=== PATIENT | female | born 1985 | race Caucasian/White ===

== ENCOUNTER 2021-09-04 07:10 | Emergency (ER) | payer OTHER, MEDICAID, SELFPAY ==
[2021-09-04 07:20] VITALS: BP 122/73; PULSE 76; RESP 20; TEMP 36.7; O2SAT 100; BMI 37.3
--- NOTE | 2021-09-04 07:26 | ED.EXTPRO ---
HPI - Extremity Problem General Chief complaint: Extremity Problem,Nontraumatic Stated complaint: Right arm pain Time Seen by Provider: 09/04/21 07:19 History of Present Illness HPI Narrative: 36-year-old woman with history of diabetes, hyperlipidemia, hypertension and tension headaches presents with 2 and half days of increasing right shoulder arm and hand pain. She notes pain shooting down the posterior portion of her arm but no actual weakness or loss of sensation. She describes no specific trauma that started the problem. She has had no fevers, cough, chills. There is no history of IV drug use or immuno compromised status. She has not had a change to her baseline headaches, no vomiting, diarrhea, abdominal pain. Related Data Previous Rx's Medication Instructions Recorded dexamethasone 4 mg tablet 10 mg PO DAILY #5 tab 09/04/21 hydrocodone 5 mg-acetaminophen 300 1 tab PO Q6H PRN #14 tab 09/04/21 mg tablet Allergies Allergy/AdvReac Type Severity Reaction Status Date / Time oxycodone [From Percocet] Allergy Rash Verified 09/04/21 07:55 Penicillins Allergy Rash Verified 09/04/21 07:55 Review of Systems Review of Systems Narrative: Remainder of complete review of systems is otherwise unremarkable except for that included in the HPI. Patient History Medical History Diabetes Hyperlipidemia Hypertension Tension headache Social History Smoking Status: Current every day smoker Exam Narrative Exam Narrative: General: Alert appropriate in no acute distress Neck: No point tenderness midline cervical area. No skin changes. She did have some tenderness at approximately the C6-7 8 level into the lateral portion of the cervical spine and trapezius muscle that reproduces her pain particularly with stress and minor neck manipulation. Respiratory: Able to speak in full sentences, no obvious respiratory distress Skin: No obvious rashes, warm and dry Extremity: With passive range of motion she has no restrictions at the shoulder elbow or wrist on the right side. Neurovascularly intact. No obvious swelling to the right upper extremity compared to left. Neurologic: Grossly intact no obvious asymmetries or abnormalities, no identified paresthesias to the upper extremity or hand on the right side Psych: appropriate insight and affect, cooperative Initial Vital Signs Initial Vital Signs: Vital Signs Temperature 98.1 F 09/04/21 07:20 Pulse Rate 76 09/04/21 07:20 Respiratory Rate 20 09/04/21 07:20 Blood Pressure 122/73 09/04/21 07:20 Pulse Oximetry 100 09/04/21 07:20 Course Orders Ordered: Discontinued Medications Hydrocodone Bitart/Acetaminophen (Hydrocodone/Acet 10/325 Tablet) 1 tab PO NOW ONE Stop: 09/04/21 07:41 Dexamethasone (Dexamethasone 4 Mg Tablet) 8 mg PO NOW ONE Stop: 09/04/21 07:41 Ketorolac Tromethamine (Ketorolac 30 Mg/Ml Vial) 30 mg IM NOW ONE Stop: 09/04/21 07:41 Vital Signs Vital signs: Vital Signs - 8 hr 09/04/21 07:20 Temperature 98.1 F Pulse Rate 76 Respiratory Rate 20 Blood Pressure 122/73 Pulse Oximetry 100 MDM - Extremity (Nontraumatic) MDM Narrative Medical decision making narrative: 36-year-old woman with diabetes, hypertension, hyperlipidemia with 2 and half days of increasing shoulder and arm pain reproduced by palpation along the lateral aspect of C7 and 8 and consistent with cervical radicular pain. There is no evidence of epidural abscess, shingles, shoulder joint infection or effusion. No biceps, triceps tendinitis and no elbow or wrist abnormalities. He is given a shot of Toradol and Vicodin here in the emergency department. A sling started on Decadron for 3 days instructed that she try ice to her neck rather than her elbow and shoulder and follow-up with her primary care physician next week. She is safe for home discharge Discharge Plan Departure Patient Disposition: Home Clinical Impression: Cervical radiculopathy at C8, C7 radiculopathy Instructions: DI for Neck Pain Activity Restrictions/Additional Instructions: Thank you for coming in today I am sorry you are hurting so much. The source of your pain seems to be the nerves coming out of your neck at the C7 and C8 level that wrap around the top of your shoulder blade, the back of your arm and down to your hand. I am going to suggest 3 days of a steroid, dexamethasone. This will help reduce the inflammation at the base of your neck. Using 400 mg of ibuprofen (2 noln-eww-sylagca pills) and 1 Tylenol every 6 hours can be very helpful in controlling pain. And for severe pain 400 mg of ibuprofen and 1 Vicodin. Use ice to the lower portion of your neck and the sling to help reduce pulling and pain to the area Please schedule a follow-up appointment with your primary care physician for early next week. I hope you feel better Prescriptions: New hydrocodone-acetaminophen 5-300 mg tablet 1 tab PO Q6H PRN (Reason: pain) Qty: 14 RF: 0 dexamethasone 4 mg tablet 10 mg PO DAILY Qty: 5 RF: 0
[2021-09-04] MEDS: KETOROLAC 30 MG/ML VIAL IM (07:56)
[2021-09-04] MEDS: HYDROCODONE/ACET 10/325 TABLET 1 TAB PO (07:57)
[2021-09-04] MEDS: dexAMETHasone 4 MG TABLET 8 MG PO (07:58)
[2021-09-04 08:25] VITALS: BP 116/83; PULSE 72; RESP 16; O2SAT 98
== END 2021-09-04 08:35 | disposition home or self-care (01) ==
PROVIDERS: Emergency Provider Emergency Medicine
DX: M54.12 Radiculopathy, cervical region (principal)
CPT/HCPCS: 96372; 99283; 99284; J1885

== ENCOUNTER 2021-09-08 11:04 | Emergency (ER) | payer OTHER, MEDICAID, SELFPAY ==
[2021-09-08] VITALS (17 sets, daily range): BP systolic 97–127; BP diastolic 67–85; PULSE 58–87; RESP 18–31; TEMP 35.8; O2SAT 98–100; BMI 35.7
--- NOTE | 2021-09-08 11:24 | DI.RAD.S_ITS ---
PROCEDURE: XR CHEST 1V INDICATIONS: syncope TECHNIQUE: One view of the chest was acquired. COMPARISON: [facility], , XR CHEST 1 VIEW, 03/18/2020, 18:10. FINDINGS: Surgical changes and devices: None. Lungs and pleura: Platelike atelectasis in the left lung base, otherwise lungs are clear. No pleural effusions or pneumothorax. Mediastinum: Mediastinal contours appear normal. Heart size is normal. Bones and chest wall: No suspicious bony lesions. Overlying soft tissues appear unremarkable. IMPRESSION: Platelike atelectasis in the left lung base, otherwise no acute cardiopulmonary abnormality. Dictated by: Gustabo Swanson M.D. on 09/08/2021 at 11:54 Approved by: Gustabo Swanson M.D. on 09/08/2021 at 11:55
[2021-09-08 11:35] LABS: Add Manual Diff / Slide Review NO; Basophils Absolute Auto 100 /uL (0-100); Basophils Percent Auto 0.4 % (0-2); Eosinophils Absolute Auto 200 /uL (0-450); Eosinophils Percent Auto 1.1 % (2-4); Hematocrit 47.1 % (36-46); Hemoglobin 15.7 g/dL (12.0-16.0); Lymphocytes Absolute Auto 6600 /uL (1100-4500); Lymphocytes Percent Auto 30.2 % (25-40); Mean Corpuscular HGB Conc 33.3 % (30-36); Mean Corpuscular Volume 90.2 fL (80-100); Monocytes Absolute Auto 1600 /uL (0-900); Monocytes Percent Auto 7.1 % (3-14); Neutrophils Absolute Auto 13300 /uL (1500-7000); Neutrophils Percent Auto 61.2 % (50-75); Platelet Count 301 X10^3/uL (150-400); Red Blood Cell Count 5.22 X10^6/uL (4.0-5.2); White Blood Cell Count 21.8 X10^3/uL (4.5-11.0)
[2021-09-08 11:36] LABS: Alanine Aminotransferase 45 IU/L (<35); Albumin 4.5 g/dL (3.5-5.0); Albumin Globulin Ratio 1.4 (1.0-2.8); Alkaline Phosphatase 56 U/L (38-126); Aspartate Aminotransferase 48 IU/L (14-36); BUN Creatinine Ratio 27.5 (6-22); Bilirubin Total 0.6 mg/dL (0.2-1.3); Blood Urea Nitrogen 30 mg/dL (7-17); Calcium 9.7 mg/dL (8.4-10.2); Carbon Dioxide 16 mmol/L (22-32); Chloride 109 mmol/L (98-107); Creatine Kinase 69 U/L (30-135); Estimated Glomerular Filt Rate 57.5 mL/min (>60); Globulin 3.3 g/dL (1.7-4.1); Glucose 114 mg/dL (70-100); Lipase 366 U/L (23-300); Potassium 4.4 mmol/L (3.4-5.1); Sodium 137 mmol/L (137-145); Total Protein 7.8 g/dL (6.3-8.2)
[2021-09-08] MEDS: SODIUM CHLORIDE 0.9% 1,000 ML 1000 ML IV (11:38)
[2021-09-08] MEDS: MECLIZINE HCL 12.5 MG TABLET 25 MG PO (11:38)
[2021-09-08 11:49] LABS: D Dimer 733 ng/mL (<230)
[2021-09-08 11:50] LABS: HEMOLYSIS 98 (0-50); Troponin I < 0.012 ng/mL (0.01-0.034)
--- NOTE | 2021-09-08 12:03 | DI.CT.S_ITS ---
PROCEDURE: CT ANGIO CHEST PE PROTOCOL INDICATIONS: +dimer syncope TECHNIQUE: After the administration of intravenous contrast, 2 mm thick sections acquired from the pulmonary apices to the posterior costophrenic angles. 3-dimensional maximum intensity projection (MIP) coronal and sagittal reformats were then acquired through the thorax. For radiation dose reduction, the following was used: automated exposure control, adjustment of mA and/or kV according to patient size. COMPARISON: None. FINDINGS: Image quality: Excellent. Pulmonary arteries: Pulmonary arteries are normal in size, and demonstrate no intraluminal filling defects to suggest central pulmonary embolism. Lungs and pleura: Lungs are clear. No pleural effusions or pneumothorax. Central and peripheral airways are patent. Mediastinum: Heart size is normal, without pericardial effusion. No mediastinal or hilar adenopathy. Thoracic aorta is normal in caliber and enhancement. Esophagus is normal in caliber, without hiatal hernia. Bones and chest wall: No suspicious bony lesions. Ribs and thoracic spine appear intact throughout. Thyroid gland is normal. No axillary or supraclavicular adenopathy. Abdomen: Visualized upper abdominal solid organs appear normal in the early arterial phase of enhancement. IMPRESSION: 1. No pulmonary embolism. 2. No acute abnormality of the chest. Dictated by: Gustabo Swanson M.D. on 09/08/2021 at 12:25 Approved by: Gustabo Swanson M.D. on 09/08/2021 at 12:44
--- NOTE | 2021-09-08 12:03 | ED_ITS ---
HPI - Dizziness General Chief Complaint: Syncope Stated Complaint: Syncope Time Seen by Provider: 09/08/21 11:23 Source: EMS Mode of arrival: EMS History of Present Illness HPI Narrative: Patient is a 36-year-old female with history of diabetes presenting after near syncopal episode. She says she was not feeling well for last 2 days she has had body aches and fever. Today she is not exactly sure what happened but woke up on the floor with people around her. She was at work when this happened. She denies any chest pain or palpitations. She is not having any shortness of breath. She denies any abdominal pain urinary frequency or urgency. She has no nausea or vomiting. She simply does not feel well. She is on steroids for a pinched nerve in her neck. Related Data Previous Rx's Medication Instructions Recorded dexamethasone 4 mg tablet 10 mg PO DAILY #5 tab 09/04/21 hydrocodone 5 mg-acetaminophen 300 1 tab PO Q6H PRN #14 tab 09/04/21 mg tablet Allergies Allergy/AdvReac Type Severity Reaction Status Date / Time oxycodone [From Percocet] Allergy Rash Verified 09/08/21 11:10 Penicillins Allergy Rash Verified 09/08/21 11:10 Review of Systems Review of Systems Narrative: GENERAL: See HPI HEENT: Denies sinus pain, ear pain, sore throat, difficulty swallowing, neck pain RESPIRATORY: See HPI CARDIOVASCULAR: Denies chest pain, palpitations, orthopnea, edema GASTROINTESTINAL: Denies nausea, vomiting, abdominal pain, diarrhea, constipation, melena. : Denies dysuria, frequency, incontinence, hematuria, urinary retention, flank pain. MUSCULOSKELETAL: Denies weakness, joint pain, or bony pain SKIN: No rash, no erythema, no pruritus NEUROLOGIC: Denies weakness, dizziness, headache, numbness, change in speech, confusion PSYCHIATRIC: No concerning psychosocial issues. 12 point review of systems is negative except for those stated above and HPI Patient History Medical History Diabetes Hyperlipidemia Hypertension Tension headache Social History Smoking Status: Current every day smoker Smoking Status: Current every day smoker tobacco type: cigarettes alcohol intake frequency: 0-2 drinks per day Substance Use Type: does not use Exam Initial Vital Signs Initial Vital Signs: Vital Signs Temperature 96.4 F L 09/08/21 11:05 Pulse Rate 78 09/08/21 11:05 Respiratory Rate 18 09/08/21 11:05 Blood Pressure 105/76 09/08/21 11:05 Pulse Oximetry 98 09/08/21 11:05 GENERAL: 36-year-old female does not appear to feel well she is ambulatory to the [facility] . however not very steady. HEENT: Head atraumatic,EOMI, pupils reactive, face symmetric, moist mucous membranes CARDIOVASCULAR: Regular rate and rhythm without murmurs, rubs or gallops. RESPIRATORY: Breath sounds equal bilaterally, no wheezes rales or rhonchi. ABDOMEN: Soft, nontender. Normoactive bowel sounds all 4 quadrants. No guarding or rebound. EXTREMITIES: Normal range of motion, no clubbing or edema. Neurovascularly intact NEUROLOGICAL: Alert and oriented x4.Normal gait and speech. SKIN: Warm, dry, no laceration, no petechiae, no rashes or lesions. Course Orders Ordered: ED Orders 09/08/21 11:00 Complete Blood Count AUTO DIFF Stat Comprehensive Metabolic Panel Stat D Dimer Stat Lipase Stat Troponin & CK Cardiac Panel Stat 09/08/21 11:12 EKG-12 Lead Stat 09/08/21 11:24 XR chest 1V Stat 09/08/21 11:30 Blood Culture Stat Lactate (Lactic Acid) Stat Procalcitonin Stat 09/08/21 12:03 CT angio chest PE protocol Stat 09/08/21 12:45 COVID19 -Nasal swab/Pre-Proc Stat 09/08/21 14:18 Urine Microscopic Stat Discontinued Medications Sodium Chloride (Normal Saline 0.9%) 1,000 mls @ 1,000 mls/hr IV CONT ZAINA Last Infusion: 09/08/21 13:50 Dose: 0 mls/hr Documented by: Admin: 09/08/21 11:38 Dose: 1,000 mls/hr Documented by: JOHN Meclizine HCl (Meclizine Hcl 12.5 Mg Tablet) 25 mg PO NOW ONE Stop: 09/08/21 11:24 Last Admin: 09/08/21 11:38 Dose: 25 mg Documented by: JOHN Vital Signs Vital signs: Vital Signs - 8 hr 09/08/21 11:30 09/08/21 12:00 10/18/21 12:19 Pulse Rate 69 64 62 Respiratory Rate 30 H 24 Blood Pressure 99/67 97/70 126/75 Pulse Oximetry 98 99 100 09/08/21 12:30 09/08/21 13:00 09/08/21 13:30 Pulse Rate 60 65 59 L Respiratory Rate 28 H 20 Blood Pressure 127/85 Pulse Oximetry 100 100 09/08/21 14:12 09/08/21 14:30 09/08/21 15:00 Pulse Rate 58 L 61 61 Respiratory Rate 20 29 H Blood Pressure Pulse Oximetry 100 100 99 09/08/21 15:07 09/08/21 15:30 09/08/21 15:31 Pulse Rate 61 62 63 Respiratory Rate 26 H 26 H 31 H Blood Pressure 109/68 121/77 126/80 Pulse Oximetry 99 09/08/21 16:00 09/08/21 16:30 Pulse Rate 61 63 Respiratory Rate 30 H 29 H Blood Pressure 113/69 Pulse Oximetry 98 [facility] - Dizziness Medical Records Medical records narrative: anion gap 12 Lab Data Result diagrams: 09/08/21 11:00 09/08/21 11:00 Labs: Lab Results 09/08/21 09/08/21 09/08/21 Range/Units 11:00 11:00 11:00 WBC 21.8 H (4.5-11.0) X10^3/uL RBC 5.22 H (4.0-5.2) X10^6/uL Hgb 15.7 (12.0-16.0) g/dL Hct 47.1 H (36-46) % MCV 90.2 (80-100) fL MCH 30.0 (26-34) PG MCHC 33.3 (30-36) % RDW 14.0 (11.6-14.8) % Plt Count 301 (150-400) X10^3/uL Neut % (Auto) 61.2 (50-75) % Lymph % (Auto) 30.2 (25-40) % [place] % (Auto) 7.1 (3-14) % Eos % (Auto) 1.1 L (2-4) % Baso % (Auto) 0.4 (0-2) % Neut # (Auto) 09694 H (4529-2121) /uL Lymph # (Auto) 6600 H (2375-9590) /uL [place] # (Auto) 1600 H (0-900) /uL Eos # (Auto) 200 (0-450) /uL Baso # (Auto) 100 (0-100) /uL D-Dimer 733 H (<230) ng/mL Sodium 137 (137-145) mmol/L Potassium 4.4 (3.4-5.1) mmol/L Chloride 109 H (98-107) mmol/L Carbon Dioxide 16 L (22-32) mmol/L BUN 30 H (7-17) mg/dL Creatinine 1.09 H (0.52-1.04) mg/dL Estimated GFR 57.5 L (>60) mL/min BUN/Creatinine Ratio 27.5 H (6-22) Glucose 114 H (70-100) mg/dL Lactate (0.7-2.1) mmol/L Calcium 9.7 (8.4-10.2) mg/dL Total Bilirubin 0.6 (0.2-1.3) mg/dL AST 48 H (14-36) IU/L ALT 45 H (<35) IU/L Alkaline Phosphatase 56 (38-126) U/L Total Creatine Kinase 69 (30-135) U/L CK-MB (CK-2) TNP CK-MB (CK-2) Rel Index TNP Troponin I < 0.012 (0.01-0.034) ng/mL Total Protein 7.8 (6.3-8.2) g/dL Albumin 4.5 (3.5-5.0) g/dL Globulin 3.3 (1.7-4.1) g/dL Albumin/Globulin Ratio 1.4 (1.0-2.8) Lipase 366 H (23-300) U/L Procalcitonin (<0.5) ng/mL Urine RBC (0-5/HPF) Urine WBC (0-5/HPF) Ur Squamous Epith Cells (0-5/HPF) Urine Bacteria (None) Ur Culture Indicated? SARS-CoV-2 (PCR) (Negative) 09/08/21 09/08/21 09/08/21 Range/Units 11:30 11:30 12:45 WBC (4.5-11.0) X10^3/uL RBC (4.0-5.2) X10^6/uL Hgb (12.0-16.0) g/dL Hct (36-46) % MCV (80-100) fL MCH (26-34) PG MCHC (30-36) % RDW (11.6-14.8) % Plt Count (150-400) X10^3/uL Neut % (Auto) (50-75) % Lymph % (Auto) (25-40) % [place] % (Auto) (3-14) % Eos % (Auto) (2-4) % Baso % (Auto) (0-2) % Neut # (Auto) (5565-7432) /uL Lymph # (Auto) (0694-7479) /uL [place] # (Auto) (0-900) /uL Eos # (Auto) (0-450) /uL Baso # (Auto) (0-100) /uL D-Dimer (<230) ng/mL Sodium (137-145) mmol/L Potassium (3.4-5.1) mmol/L Chloride (98-107) mmol/L Carbon Dioxide (22-32) mmol/L BUN (7-17) mg/dL Creatinine (0.52-1.04) mg/dL Estimated GFR (>60) mL/min BUN/Creatinine Ratio (6-22) Glucose (70-100) mg/dL Lactate 1.9 (0.7-2.1) mmol/L Calcium (8.4-10.2) mg/dL Total Bilirubin (0.2-1.3) mg/dL AST (14-36) IU/L ALT (<35) IU/L Alkaline Phosphatase (38-126) U/L Total Creatine Kinase (30-135) U/L CK-MB (CK-2) CK-MB (CK-2) Rel Index Troponin I (0.01-0.034) ng/mL Total Protein (6.3-8.2) g/dL Albumin (3.5-5.0) g/dL Globulin (1.7-4.1) g/dL Albumin/Globulin Ratio (1.0-2.8) Lipase (23-300) U/L Procalcitonin 0.07 (<0.5) ng/mL Urine RBC (0-5/HPF) Urine WBC (0-5/HPF) Ur Squamous Epith Cells (0-5/HPF) Urine Bacteria (None) Ur Culture Indicated? SARS-CoV-2 (PCR) Negative (Negative) 09/08/21 09/08/21 Range/Units 14:18 15:39 WBC (4.5-11.0) X10^3/uL RBC (4.0-5.2) X10^6/uL Hgb (12.0-16.0) g/dL Hct (36-46) % MCV (80-100) fL MCH (26-34) PG MCHC (30-36) % RDW (11.6-14.8) % Plt Count (150-400) X10^3/uL Neut % (Auto) (50-75) % Lymph % (Auto) (25-40) % [place] % (Auto) (3-14) % Eos % (Auto) (2-4) % Baso % (Auto) (0-2) % Neut # (Auto) (1982-0107) /uL Lymph # (Auto) (6435-9272) /uL [place] # (Auto) (0-900) /uL Eos # (Auto) (0-450) /uL Baso # (Auto) (0-100) /uL D-Dimer (<230) ng/mL Sodium Cancelled (137-145) mmol/L Potassium Cancelled (3.4-5.1) mmol/L Chloride Cancelled (98-107) mmol/L Carbon Dioxide Cancelled (22-32) mmol/L BUN Cancelled (7-17) mg/dL Creatinine Cancelled (0.52-1.04) mg/dL Estimated GFR Cancelled (>60) mL/min BUN/Creatinine Ratio Cancelled (6-22) Glucose Cancelled (70-100) mg/dL Lactate (0.7-2.1) mmol/L Calcium Cancelled (8.4-10.2) mg/dL Total Bilirubin (0.2-1.3) mg/dL AST (14-36) IU/L ALT (<35) IU/L Alkaline Phosphatase (38-126) U/L Total Creatine Kinase (30-135) U/L CK-MB (CK-2) CK-MB (CK-2) Rel Index Troponin I (0.01-0.034) ng/mL Total Protein (6.3-8.2) g/dL Albumin (3.5-5.0) g/dL Globulin (1.7-4.1) g/dL Albumin/Globulin Ratio (1.0-2.8) Lipase (23-300) U/L Procalcitonin (<0.5) ng/mL Urine RBC 1-5/hpf (0-5/HPF) Urine WBC 1-5/hpf (0-5/HPF) Ur Squamous Epith Cells 10-30 /hpf H (0-5/HPF) Urine Bacteria Few (2-10) H (None) Ur Culture Indicated? Cult not indicated SARS-CoV-2 (PCR) (Negative) Point of Care Testing Test Results Negative Glucose POC 68 Urine Dip Bedside Urine Glucose Negative Bedside Urine Bilirubin - Negative Bedside Urine Ketone - Negative Urine Specific [place] 1.010 Bedside Urine Occult Blood +/- Bedside Urine pH 6 Bedside Urine Protein + 30 Bedside Urine Urobilinogen - Negative Bedside Urine Nitrite - Negative Bedside Urine Leukocytes - Negative Esterase Imaging Data Chest x-ray: Radiologist's Impression: PROCEDURE:? XR CHEST 1V ? INDICATIONS:? syncope ? TECHNIQUE:? One view of the chest was acquired.? ? COMPARISON:? [facility], , XR CHEST 1 VIEW, 03/18/2020, 18:10. ? FINDINGS:? ? Surgical changes and devices:? None.? ? Lungs and pleura:? Platelike atelectasis in the left lung base, otherwise lungs are clear.? No pleural effusions or pneumothorax.? ? Mediastinum:? Mediastinal contours appear normal.? Heart size is normal.? ? Bones and chest wall:? No suspicious bony lesions.? Overlying soft tissues appear unremarkable.? ? IMPRESSION:? Platelike atelectasis in the left lung base, otherwise no acute cardiopulmonary abnormality. ? ? Dictated by: Gustabo Swanson M.D. on 09/08/2021 at 11:54 ? ? Approved by: Gustabo Swanson M.D. on 09/08/2021 at 11:55 ? CT scan - chest: Radiologist's Impression: PROCEDURE:? CT ANGIO CHEST PE PROTOCOL ? INDICATIONS:? +dimer syncope ? TECHNIQUE:? After the administration of intravenous contrast, 2 mm thick sections acquired from the pulmonary apices to the posterior costophrenic angles.? 3-dimensional maximum intensity projection (MIP) coronal and sagittal reformats were then acquired through the thorax.? For radiation dose reduction, the following was used:? automated exposure control, adjustment of mA and/or kV according to patient size.? ? COMPARISON:? None. ? FINDINGS:? Image quality:? Excellent.? ? Pulmonary arteries:? Pulmonary arteries are normal in size, and demonstrate no intraluminal filling defects to suggest central pulmonary embolism.? ? Lungs and pleura:? Lungs are clear.? No pleural effusions or pneumothorax.? Central and peripheral airways are patent.? ? Mediastinum:? Heart size is normal, without pericardial effusion.? No mediastinal or hilar adenopathy.? Thoracic aorta is normal in caliber and enhancement.? Esophagus is normal in caliber, without hiatal hernia.? ? Bones and chest wall:? No suspicious bony lesions.? Ribs and thoracic spine appear intact throughout.? Thyroid gland is normal.? No axillary or supraclavicular adenopathy.? ? Abdomen:? Visualized upper abdominal solid organs appear normal in the early arterial phase of enhancement.? ? IMPRESSION:? 1. No pulmonary embolism. 2. No acute abnormality of the chest.? ? ? Dictated by: Gustabo Swanson M.D. on 09/08/2021 at 12:25 ? ? Approved by: Gustabo Swanson M.D. on 09/08/2021 at 12:44 ? ECG Data Interpretation: Normal sinus rhythm rate 67 ID interval 120 her [address] changes or T-wave inversions MDM Narrative Medical decision making narrative: Patient does have leukocytosis of 21,000 possibly from steroids versus infection versus stress. Bicarb is low at 16 but anion gap is 12, glucose is elevated but no sign of DKA, negative ketones in urine. Patient has been monitored in the emergency department for 5 hours. She is a difficult stick. Multiple attempts to repeat her electrolytes have been unsuccessful. She overall looks well she has no focal deficit. thinks the WBC is elevated secondary to steroid use. She is having upper respiratory like symptoms however her COVID is negative. D-dimer was added to her workup for a possible cause of syncope. It is elevated CT angio ruled out pulmonary embolism. Patient overall is feeling much better she has not been eating or drinking much since she does not feel well. She also does not think she is responding well to steroids. At this time after multiple attempts to repeat electrolytes, based on patient's clinical appearance and improvement in the emergency department will not continue to follow her. Recommend she follow up outpatient. Discharge Plan Departure Patient Disposition: Home Clinical Impression: Vasovagal syncope Instructions: DI for Syncope in Adults (Fainting) Activity Restrictions/Additional Instructions: *You have been diagnosed with syncopal episode *What to do: At this time you passed out, unsure what the cause is it may be due to not eating. You do have some infection like symptoms may need a repeat COVID testing in 5 days if still having symptoms but COVID today is negative. Please increase fluid intake and eat regular meals. *Continue to take medications as directed *Follow up with your primary care provider in 2-3 days *Return to ER if you should have recurrent episode of passing out, chest pain, increasing shortness of breath, persistent fever or any new, worsening or criss rning symptoms Prescriptions: No Action hydrocodone-acetaminophen 5-300 mg tablet 1 tab PO Q6H PRN (Reason: pain) Qty: 14 RF: 0 dexamethasone 4 mg tablet 10 mg PO DAILY Qty: 5 RF: 0 Referrals: [facility] [Outside]
[2021-09-08 13:00] LABS: Lactate (Lactic Acid) 1.9 mmol/L (0.7-2.1)
[2021-09-08 13:13] LABS: COVID19 -Nasal RAPID Negative (Negative)
[2021-09-08 13:18] LABS: Procalcitonin 0.07 ng/mL (<0.5)
[2021-09-08 14:34] LABS: RBC Urine 1-5/HPF (0-5/HPF); WBC Urine 1-5/HPF (0-5/HPF)
[2021-09-08 14:35] LABS: Bacteria Urine Few (2-10); Culture Indicated Urine Cult Not Indicated; Squamous Epithelial Cell Urine 10-30 /HPF (0-5/HPF)
== END 2021-09-08 17:00 | disposition home or self-care (01) ==
PROVIDERS: Emergency Provider Emergency Medicine
DX: R55 Syncope and collapse (principal); Z20.822 Contact with and (suspected) exposure to COVID-19; Z79.899 Other long term (current) drug therapy
CPT/HCPCS: 36415; 71045; 71275; 80053; 81003; 81015; 81025; 82550; 82962; 83605; 83690; 84145; 84484; 85025; 85379; 87040; 87635; 93005; 93010; 96360; 96361; 99284; 99285; C9803; Q9967

== ENCOUNTER 2021-11-23 10:29 | Emergency (ER) | payer OTHER, MEDICAID, SELFPAY ==
--- NOTE | 2021-11-23 11:08 | DI.RAD.S_ITS ---
PROCEDURE: XR HAND RT MIN 3V INDICATIONS: trauma TECHNIQUE: 3 views of the hand(s) acquired. COMPARISON: None. FINDINGS: Bones: No fractures or dislocations. Carpal bones are normally aligned. No suspicious bony lesions. Soft tissues: No suspicious soft tissue calcifications. IMPRESSION: No acute fracture. No osseous lesion. If symptoms and/or clinical suspicion for pathology persist, further assessment with repeat, or advanced imaging (e.g., CT, MRI, or bone scan) may be helpful for further assessment. Dictated by: Jerson Lee M.D. on 11/23/2021 at 11:43 Approved by: Jerson Lee M.D. on 11/23/2021 at 11:43
[2021-11-23 11:12] VITALS: BP 135/81; PULSE 90; TEMP 36.2; O2SAT 99
--- NOTE | 2021-11-23 12:04 | ED.GENADULT ---
HPI - General Adult General Stated complaint: possible broken right hand Time Seen by Provider: 11/23/21 10:34 History of Present Illness HPI narrative: 36-year-old woman with no significant medical history reports that earlier this month she found out her was cheating on her and and responses she punched a wall and had a minor boxer's fracture. She was placed in a splint. On new 's Susan she became intoxicated and convinced her children to help cut her out of her splint. She then again became agitated and again punched a wall. She comes in today with some minor bruising over the 5th metacarpal but no skin breakdown. She has full range of motion and is neurovascularly intact there. She is worried that she has re-injured the site Related Data Previous Rx's Medication Instructions Recorded dexamethasone 4 mg tablet 10 mg PO DAILY #5 tab 09/04/21 hydrocodone 5 mg-acetaminophen 300 1 tab PO Q6H PRN #14 tab 09/04/21 mg tablet Allergies Allergy/AdvReac Type Severity Reaction Status Date / Time oxycodone [From Percocet] Allergy Rash Verified 09/08/21 11:10 Penicillins Allergy Rash Verified 09/08/21 11:10 Review of Systems Review of Systems Narrative: Remainder of complete review of systems is otherwise unremarkable except for that included in the HPI. Patient History Medical History Diabetes Hyperlipidemia Hypertension Tension headache Social History Smoking Status: Current every day smoker Smoking Status: Current every day smoker tobacco type: cigarettes alcohol intake frequency: 0-2 drinks per day Substance Use Type: does not use Exam Narrative Exam Narrative: General: Alert appropriate in no acute distress Respiratory: Able to speak in full sentences, no obvious respiratory distress Skin: No obvious rashes, warm and dry Neurologic: Grossly intact no obvious asymmetries or abnormalities Psych: appropriate insight and affect, cooperative Extremity: Some tenderness over the right MCP 5th joint but full range of motion. No obvious deformities. Neurovascularly intact Initial Vital Signs Initial Vital Signs: Vital Signs Temperature 97.2 F L 11/23/21 11:12 Pulse Rate 90 11/23/21 11:12 Blood Pressure 135/81 11/23/21 11:12 Pulse Oximetry 99 11/23/21 11:12 Procedures Orthopedic Splinting/Casting Right hand Rob wrap: Time of procedure: 12:12 Side: right Upper Extremity Injury Location: hand Upper Extremity Immobilizer: Rob wrap Post splinting neuro exam: intact Post splinting vascular exam: intact Placed by: Provider Course Orders Ordered: ED Orders 11/23/21 11:08 XR hand RT min 3V Stat Vital Signs Vital signs: Vital Signs - 8 hr 11/23/21 11:12 Temperature 97.2 F L Pulse Rate 90 Blood Pressure 135/81 Pulse Oximetry 99 Medical Decision Making Imaging Data XR hand: Radiologist's Impression: FINDINGS:? ? Bones:? No fractures or dislocations.? Carpal bones are normally aligned.? No suspicious bony lesions.? ? Soft tissues:? No suspicious soft tissue calcifications.? ? ? IMPRESSION:? No acute fracture. No osseous lesion. If symptoms and/or clinical suspicion for pathology persist, further assessment with repeat, or advanced imaging (e.g., CT, MRI, or bone scan) may be helpful for further assessment. ? ? Dictated by: Jerson Lee M.D. on 11/23/2021 at 11:43 ? ? MDM Narrative Medical decision making narrative: 36-year-old woman with what seems like some mild anger control issues. Fortunately there is no evidence of a boxer's fracture on today's x-ray patient is reassured. She is placed in an Rob wrap with Kerlix ball on the palmar surface for comfort. Will continue having her use ibuprofen and Tylenol for pain control. Strongly recommended punching surface is other than luke when she is having frustration issues. She is safe for home discharge Discharge Plan Departure Patient Disposition: Home Clinical Impression: Contusion of hand Activity Restrictions/Additional Instructions: Thank you for coming in today Your hand x-ray is actually quite normal. The prior fracture seems to have healed nicely and you did not re-injure your hand. Please use the Rob wrap as needed for comfort. Continuing to use ibuprofen, Tylenol and ice will all be very appropriate I wish you the best Prescriptions: No Action hydrocodone-acetaminophen 5-300 mg tablet 1 tab PO Q6H PRN (Reason: pain) Qty: 14 0RF dexamethasone 4 mg tablet 10 mg PO DAILY Qty: 5 0RF
[2021-11-23 12:16] VITALS: BMI 35.3
[2021-11-23 12:26] VITALS: BP 141/99; PULSE 88; RESP 20; O2SAT 97
== END 2021-11-23 12:25 | disposition home or self-care (01) ==
PROVIDERS: Emergency Provider Emergency Medicine
DX: S60.221A Contusion of right hand, initial encounter (principal); W22.8XXA Striking against or struck by other objects, initial encounter
CPT/HCPCS: 73130; 99283